=== PATIENT | female | born 1950 | race Two or more races ===

== ENCOUNTER 2020-12-07 | Outpatient (CLI) | payer OTHER | END 2020-12-07 16:32 | disposition home or self-care (01) | LOC: PPH VACUNA | PROVIDERS: ATTEND Emergency Medicine Pediatric Emergency Medicine | DX: Z23 Encounter for immunization (principal) ==

== ENCOUNTER 2024-11-06 18:32 | Emergency (ER) | payer OTHER ==
[~2024-11-06] VITALS: Ht 160 cm; Wt 68.0 kg
[2024-11-06] MEDS ORDERED: HUMULIN 70100 UNIT/2 SQ (18:47)
[2024-11-06] MEDS ORDERED: SYNTHROID75 MCG PO (18:47)
[2024-11-06] MEDS ORDERED: NORVASC5 MG PO (18:47)
[2024-11-06] MEDS ORDERED: ATACAND4 MG (18:48)
[2024-11-06] MEDS ORDERED: DOXIL2 MG/1 ML IV (18:48)
[2024-11-06] MEDS ORDERED: INSULIN REGULAR, HUMAN 1,000 UNIT/10 ML UNITS IV ONE (19:15)
[2024-11-06 21:24] LABS: HEMATOCRIT 27.6 % (36.0-45.00); HEMOGLOBIN 9.2 g/dL (12.0-15.00); MEAN CELL VOLUME 95.2 fL (80.00-100.00); MEAN CORPUSCULAR HEMOGLOBIN 31.8 pg (27.00-32.0); MEAN CORPUSCULAR HGB CONC 33.4 g/dl (32.0-36.0); PLATELET COUNT 178 K/uL (150-450); RED CELL DISTRIBUTION WIDTH 13.1 % (11.5-14.5)
[2024-11-06 21:43] LABS: AMYLASE 35 U/L (25-115); LIPASE 41 U/L (13-75); PARTIAL THROMBOPLASTIN TIME 25.8 SECONDS (22.0-34.0); PROTHROMBIN TIME 10.9 SECONDS (9.0-11.5)
[2024-11-06 21:44] LABS: URINE APPEARANCE Clear; URINE BILIRRUBIN Negative (NEGATIVE); URINE BLOOD Negative; URINE COLOR Yellow; URINE KETONE Negative (NEGATIVE); URINE LEUKOCYTE Negative; URINE NITRATE Negative; URINE PROTEIN 30 (NEGATIVE); URINE UROBILINOGEN 0.2 E.U./dl
[2024-11-06 21:48] LABS: URINE BACTERIA 37.8 uL (0.0-1933); URINE RBC 5.5 uL (0.0-20.8); URINE WBC 9.9 uL (0.0-23.2)
[2024-11-06 21:49] LABS: ALBUMIN 3.3 gm/dL (3.4-5.0); BILIRUBIN TOTAL 0.32 mg/dL (0.3-1.2); CALCIUM 8.8 mg/dL (8.5-10.1); CREATININE SERUM 1.46 mg/dL (0.55-1.02); GFR 35.12; GLOBULINA 3.7 G/DL (2.4-3.5); POTASSIUM 4.32 mEq/L (3.5-5.1)
[2024-11-06 22:04] LABS: URINE GLUCOSE 500 MG/DL (NEGATIVE)
[2024-11-06] MEDS ORDERED: FUROsemide 20 MG/2 ML VIAL IV ONE (22:15)
[2024-11-06] MEDS ORDERED: FUROsemide 20 MG/2 ML VIAL ONE (22:28)
== END 2024-11-06 22:45 ==
LOC: ER 18:32
PROVIDERS: General Practice
DX: E11.65 Type 2 diabetes mellitus with hyperglycemia (principal); R42 Dizziness and giddiness; I10 Essential (primary) hypertension; Z79.4 Long term (current) use of insulin; Z88.1 Allergy status to other antibiotic agents
CPT/HCPCS: 36415; 70450; 71045; 93005; 96365; 99284; J1940